=== PATIENT | female | born 1985 | race Caucasian/White ===

== ENCOUNTER 2022-10-29 20:34 | Inpatient (IN) | payer OTHER ==
[2022-10-29 21:06] VITALS: BMI 36.3
[2022-10-29] MEDS ORDERED: hydrALAZINE 20 MG/ML VIAL SLOW IVP PRN (21:13)
[2022-10-29] MEDS ORDERED: hydrALAZINE 20 MG/ML VIAL ONE (21:58)
[2022-10-29] MEDS ORDERED: hydrALAZINE 20 MG/ML VIAL SLOW IVP SCH (22:00)
[2022-10-29] MEDS ORDERED: Labetalol HCl 100 MG/20 ML VIAL ONE (22:20)
[2022-10-29] MEDS ORDERED: Labetalol HCl 100 MG/20 ML VIAL SLOW IVP SCH (22:30)
[2022-10-29] MEDS ORDERED: Lorazepam 2 MG/ML VIAL SLOW IVP PRN (22:37)
[2022-10-29] MEDS ORDERED: Calcium Gluc 4.6 MEQ/10 ML (100 MG/ML) SLOW IVP PRN (22:37)
[2022-10-29] MEDS ORDERED: Ondansetron PF 4 MG/2 ML Vial IVP PRN (22:37)
[2022-10-29] MEDS ORDERED: Promethazine HCl 25 MG/ML VIAL IM PRN (22:37)
[2022-10-29] MEDS ORDERED: NS w/ Oxytocin 30 units 500 ML IV SCH (22:45)
[2022-10-29] MEDS ORDERED: Magnesium Sulfate 20 gm/500 ml 20 GM/500 ML BAG IVPB SCH (22:45)
[2022-10-29] MEDS ORDERED: Betamet Acet/Betamet Na Ph 30 MG/5 ML VIAL ONE (22:58)
[2022-10-30] MEDS ORDERED: Calcium Carbonate 500 MG ChewTAB PO PRN (07:57)
[2022-10-30] MEDS ORDERED: Docusate 100 MG CAP PO PRN (07:57)
[2022-10-30] MEDS ORDERED: hydrOXYzine 25 MG TAB PO PRN (07:57)
[2022-10-30] MEDS ORDERED: Lorazepam 2 MG/ML VIAL SLOW IVP PRN (07:57)
[2022-10-30] MEDS ORDERED: Famotidine 20 MG TAB PO PRN (07:57)
[2022-10-30] MEDS: Acetaminophen 500 MG TAB PO PRN (08:00)
[2022-10-30] MEDS ORDERED: Acetaminophen 500 MG TAB PO SCH (08:00)
[2022-10-30 08:47] LABS: Hemoglobin 10.8 g/dL (12.0-15.5); Mean Corpuscular HGB CONC 33.5 g/dL (32.0-36.0); Mean Corpuscular Volume 89.4 fl (81.6-98.3); Mean Platelet Volume 10.9 fl (7.4-10.4); Platelet Count 239 10x3/uL (150-450); RBC Distribution Width 13.3 % (11.5-14.5); White Blood Cell (WBC) Count 12.9 10x3/uL (3.5-10.5)
[2022-10-30 08:59] LABS: ALT (SGPT) 10 U/L (8-55); AST (SGOT) 13 U/L (5-34); Albumin 3.5 g/dL (3.5-5.0); Alkaline Phosphatase 74 U/L (40-110); Anion Gap 15 mmol/L (10-20); BUN (Urea Nitrogen) 5 mg/dL (7.0-18.7); Bilirubin, Total 0.3 mg/dL (0.2-1.2); Calc. Creatinine Clearance 196 mL/min (70-130); Calcium 8.1 mg/dL (7.8-10.44); Carbon Dioxide 18 mmol/L (22-29); Chloride 105 mmol/L (98-107); Estimated GFR 119; Globulin 3.1 g/dL (2.4-3.5); Glucose 123 mg/dL (70-105); Potassium 4.2 mmol/L (3.5-5.1); Protein, Total 6.6 g/dL (6.0-8.3); Sodium 134 mmol/L (136-145)
[2022-10-30] MEDS ORDERED: Sertraline 100 MG TAB PO SCH (09:00)
[2022-10-30] MEDS: Labetalol HCl 200 MG TAB PO SCH ×2 (09:57→21:39)
[2022-10-30] MEDS: metroNIDAZOLE 500 MG TAB PO SCH ×2 (09:59→21:39)
[2022-10-30] MEDS: Prenatal Vitamin 1 TAB PO SCH (09:59)
[2022-10-30] MEDS: Aspirin 81 mg Enteric Coated Tablet PO SCH (09:59)
[2022-10-30] MEDS: Sertraline 100 MG TAB PO SCH (10:00)
[2022-10-30] MEDS: Betamet Acet/Betamet Na Ph 30 MG/5 ML VIAL IM SCH ×2 (12:10→23:27)
[2022-10-30] MEDS ORDERED: diphenhydrAMINE 50 MG/ML VIAL IVP SCH (16:30)
[2022-10-30] MEDS ORDERED: Metoclopramide HCl 10 MG/2 ML VIAL IVP SCH (16:30)
[2022-10-31] MEDS: HYDROcodone/Acetaminophen 5/325 mg Tablet PO PRN ×4 (01:51→18:30)
[2022-10-31] MEDS ORDERED: diphenhydrAMINE 50 MG/ML VIAL IVP PRN (02:08)
[2022-10-31] MEDS ORDERED: Metoclopramide HCl 10 MG/2 ML VIAL IVP PRN (02:09)
[2022-10-31] MEDS: Acetaminophen 500 MG TAB PO PRN ×2 (05:08→14:53)
[2022-10-31] MEDS: Labetalol HCl 200 MG TAB PO SCH ×2 (07:59→20:46)
[2022-10-31] MEDS: Sertraline 100 MG TAB PO SCH (07:59)
[2022-10-31] MEDS: metroNIDAZOLE 500 MG TAB PO SCH ×2 (08:10→20:46)
[2022-10-31] MEDS: Aspirin 81 mg Enteric Coated Tablet PO SCH (08:10)
[2022-10-31] MEDS: Prenatal Vitamin 1 TAB PO SCH (08:11)
[2022-10-31 11:03] LABS: Urine Total Volume 1800 mL (600-1600)
[2022-10-31 11:25] LABS: Protein - 24 Hr 198 mg/24 hr (Less than 300); Protein, Urine 11 mg/dL (1-14)
[2022-10-31] MEDS ORDERED: Lidocaine 4% Patch TD SCH (14:00)
[2022-10-31 20:47] VITALS: BP 126/60
[2022-10-31 20:57] VITALS: TEMP 98.4
[2022-11-01] MEDS ORDERED: Transdermal Patch Removal TOP SCH (02:00)
== END 2022-10-31 21:15 | disposition home or self-care (01) | DRG 832 ==
LOC: CSHLD 20:34 → CSHANTE 10-30 13:04
PROVIDERS: ADMIT Student in an Organized Health Care Education/Training Program; ATTEND Student in an Organized Health Care Education/Training Program
DX: O36.8130 Decreased fetal movements, third trimester, not applicable or unspecified (principal); O10.913 Unspecified pre-existing hypertension complicating pregnancy, third trimester; O23.593 Infection of other part of genital tract in pregnancy, third trimester; Z3A.28 28 weeks gestation of pregnancy; O99.343 Other mental disorders complicating pregnancy, third trimester; O99.213 Obesity complicating pregnancy, third trimester; F41.0 Panic disorder [episodic paroxysmal anxiety]; F32.9 Major depressive disorder, single episode, unspecified; E66.9 Obesity, unspecified; O34.211 Maternal care for low transverse scar from previous cesarean delivery; Z79.899 Other long term (current) drug therapy; Z79.82 Long term (current) use of aspirin
CPT/HCPCS: 36415; 51702; 76642; 76819; 80053; 82570; 83880; 84156; 85027; 93005; 93010; 99285; J0360; J0702; J1200; J2765; J3475

== ENCOUNTER 2022-12-19 21:12 | Day surgery (SDC) | payer OTHER ==
[2022-12-19 22:21] VITALS: BMI 37.2
[2022-12-19 22:33] LABS: Fetal Membranes Rupture No Membranes Rupture (No Rupture)
[2022-12-19] MEDS ORDERED: hydrALAZINE 20 MG/ML VIAL SLOW IVP PRN (22:38)
[2022-12-19 23:46] LABS: #Basophils 0.1 10x3/uL (0.0-0.2); #Eosinphils 0.3 10x3/uL (0.0-0.5); #Neutrophils 6.8 10x3/uL (1.5-8.4); %Basophils 0.8 % (0.0-2.0); %Eosinophils 3.2 % (0.0-6.0); %Lymphocytes 14.7 % (18.0-47.0); %Neutrophils 67.4 % (40.0-75.0); Hematocrit 30.7 % (34.9-44.5); Hemoglobin 10.3 g/dL (12.0-15.5); Mean Corpuscular HGB CONC 33.6 g/dL (32.0-36.0); Mean Corpuscular Hemoglobin 28.9 pg (27.0-33.0); Mean Platelet Volume 10.7 fl (7.4-10.4); Platelet Count 216 10x3/uL (150-450); RBC Distribution Width 13.9 % (11.5-14.5); Red Blood Cell (RBC) Count 3.57 10x6/uL (3.90-5.03); White Blood Cell (WBC) Count 10.1 10x3/uL (3.5-10.5)
[2022-12-19 23:56] LABS: ALT (SGPT) 11 U/L (8-55); AST (SGOT) 11 U/L (5-34); Albumin 3.4 g/dL (3.5-5.0); Alkaline Phosphatase 97 U/L (40-110); Anion Gap 16 mmol/L (10-20); BUN (Urea Nitrogen) 7 mg/dL (7.0-18.7); Bilirubin, Total 0.3 mg/dL (0.2-1.2); Calc. Creatinine Clearance 201 mL/min (70-130); Calcium 8.9 mg/dL (7.8-10.44); Carbon Dioxide 19 mmol/L (22-29); Chloride 107 mmol/L (98-107); Estimated GFR 119; Globulin 2.7 g/dL (2.4-3.5); Glucose 102 mg/dL (70-105); Potassium 3.8 mmol/L (3.5-5.1); Protein, Total 6.1 g/dL (6.0-8.3); Sodium 138 mmol/L (136-145)
[2022-12-19] MEDS ORDERED: Labetalol HCl 100 MG TAB PO SCH (23:59)
[2022-12-20] LABS: Creatinine, Urine 202.67 mg/dL (47-110)
[2022-12-20] MEDS ORDERED: Labetalol HCl 100 MG TAB PO SCH (02:15)
[2022-12-20] MEDS ORDERED: ALPRAZolam 0.25 MG TAB PO PRN (02:18)
[2022-12-20 02:29] VITALS: BP 162/79
== END 2022-12-20 04:12 | disposition home or self-care (01) ==
LOC: CSHLD/OP 21:12
PROVIDERS: ATTEND Emergency Medicine
DX: Z03.71 Encounter for suspected problem with amniotic cavity and membrane ruled out (principal); O09.523 Supervision of elderly multigravida, third trimester; O99.891 Other specified diseases and conditions complicating pregnancy; R10.9 Unspecified abdominal pain; O10.913 Unspecified pre-existing hypertension complicating pregnancy, third trimester; O99.343 Other mental disorders complicating pregnancy, third trimester; F41.0 Panic disorder [episodic paroxysmal anxiety]; F32.9 Major depressive disorder, single episode, unspecified; O99.213 Obesity complicating pregnancy, third trimester; E66.9 Obesity, unspecified; Z87.59 Personal history of other complications of pregnancy, childbirth and the puerperium; Z79.82 Long term (current) use of aspirin; Z79.899 Other long term (current) drug therapy; Z3A.35 35 weeks gestation of pregnancy
CPT/HCPCS: 36415; 76819; 80053; 82570; 84112; 84156; 85025; 99284

== ENCOUNTER 2022-12-30 15:39 | Inpatient (IN) | payer OTHER ==
[2022-12-30 16:05] VITALS: BMI 38.7
[2022-12-30 16:41] LABS: Hematocrit 31.4 % (34.9-44.5); Hemoglobin 10.5 g/dL (12.0-15.5); Mean Corpuscular HGB CONC 33.4 g/dL (32.0-36.0); Mean Corpuscular Hemoglobin 28.7 pg (27.0-33.0); Mean Corpuscular Volume 85.8 fl (81.6-98.3); Mean Platelet Volume 10.7 fl (7.4-10.4); Platelet Count 258 10x3/uL (150-450); RBC Distribution Width 14.2 % (11.5-14.5); Red Blood Cell (RBC) Count 3.66 10x6/uL (3.90-5.03); White Blood Cell (WBC) Count 10.5 10x3/uL (3.5-10.5)
[2022-12-30 16:50] LABS: ALT (SGPT) 10 U/L (8-55); AST (SGOT) 13 U/L (5-34); Albumin 3.4 g/dL (3.5-5.0); Alkaline Phosphatase 109 U/L (40-110); Anion Gap 16 mmol/L (10-20); BUN (Urea Nitrogen) 9 mg/dL (7.0-18.7); Bilirubin, Total 0.3 mg/dL (0.2-1.2); Calc. Creatinine Clearance 203 mL/min (70-130); Calcium 9.4 mg/dL (7.8-10.44); Carbon Dioxide 18 mmol/L (22-29); Chloride 106 mmol/L (98-107); Estimated GFR 118; Globulin 3.3 g/dL (2.4-3.5); Glucose 133 mg/dL (70-105); Potassium 3.7 mmol/L (3.5-5.1); Protein, Total 6.7 g/dL (6.0-8.3); Sodium 136 mmol/L (136-145)
[2022-12-30] MEDS ORDERED: Labetalol HCl 100 MG/20 ML VIAL SLOW IVP PRN (17:10)
[2022-12-30] MEDS ORDERED: hydrALAZINE 20 MG/ML VIAL ONE (17:46)
[2022-12-30] MEDS ORDERED: CEFAZOLIN 1 GM VIAL ONE (17:47)
[2022-12-30] MEDS ORDERED: Magnesium Sulfate 20 gm/500 ml 20 GM/500 ML BAG ONE (17:48)
[2022-12-30] MEDS ORDERED: Calcium Gluc 4.6 MEQ/10 ML (100 MG/ML) SLOW IVP PRN ×2 (18:03→23:32)
[2022-12-30] MEDS ORDERED: hydrALAZINE 20 MG/ML VIAL SLOW IVP PRN ×2 (18:03→23:32)
[2022-12-30] MEDS ORDERED: Lorazepam 2 MG/ML VIAL SLOW IVP PRN (18:03)
[2022-12-30] MEDS ORDERED: Promethazine HCl 25 MG/ML VIAL IM PRN ×3 (18:12→23:32)
[2022-12-30] MEDS ORDERED: Ondansetron PF 4 MG/2 ML Vial IVP PRN ×3 (18:12→23:32)
[2022-12-30] MEDS ORDERED: Misoprostol 200 MCG TAB PR PRN ×2 (18:12→23:32)
[2022-12-30] MEDS ORDERED: Methylergonovine 0.2 MG/ML VIAL IM PRN (18:12)
[2022-12-30] MEDS ORDERED: Magnesium Sulfate 20 gm/500 ml 20 GM/500 ML BAG IVPB SCH ×2 (18:15→23:32)
[2022-12-30] MEDS ORDERED: NS w/ Oxytocin 30 units 500 ML IV SCH ×2 (18:15→23:32)
[2022-12-30] MEDS ORDERED: ePHEDrine Sulfate 50 MG/10 ML VIAL ONE (18:41)
[2022-12-30] MEDS ORDERED: Morphine PF 10 MG/10 ML VIAL ONE (18:41)
[2022-12-30] MEDS ORDERED: fentaNYL 50 mcg/mL 1 mL Vial ONE (18:41)
[2022-12-30] MEDS ORDERED: Midazolam HCl 2 mg/2 ml Vial ONE (18:41)
[2022-12-30] MEDS ORDERED: Ketorolac Tromethamine 30 MG/ML VIAL ONE (18:42)
[2022-12-30] MEDS ORDERED: Ondansetron PF 4 MG/2 ML Vial ONE (18:42)
[2022-12-30] MEDS ORDERED: PHENYLEPHRINE-NS 100 MCG/ML 10 ML SYRINGE ONE (18:42)
[2022-12-30] MEDS ORDERED: Phenylephrine 40 MG/NS 250 ML 250 ML ONE (18:42)
[2022-12-30 19:00] LABS: HBSAg Index 0.29 S/CO (0-0.99); HIV (1/2) Antibody/Antigen Non-Reactive (NonReactive); HIV 1/2 INDEX 0.06 S/CO (<1.00); Hep B Surf Ag - L&D Non-Reactive S/CO (NonReactive)
[2022-12-30 19:01] LABS: Syphilis Antibody Nonreactive (Nonreactive); Syphilis Antibody Index 0.03 S/CO (<1.00 Non-Reactive)
[2022-12-30] MEDS ORDERED: Acetaminophen 500 MG TAB PO PRN (19:23)
[2022-12-30] MEDS ORDERED: ALPRAZolam 0.5 MG TAB PO PRN (19:23)
[2022-12-30] MEDS ORDERED: Doxylamine 25 MG TAB PO PRN (19:23)
[2022-12-30 19:27] LABS: Bilirubin Neg (Negative); Blood, Urine Negative (Negative); Glucose, Urine (Dipstick) 250 mg/dL (Negative); Ketone, Urine 5 mg/dL (Negative); Leukocyte Negative (Negative); Nitrite Negative (Negative); Protein, Urine (Dipstick) 15 mg/dl (Neg-Trace); Urobilinogen Normal mg/dL (Less than 2)
[2022-12-30 19:28] LABS: Clarity Hazy (Clear)
[2022-12-30 19:44] LABS: Creatinine, Urine 97.62 mg/dL (47-110)
[2022-12-30 20:14] LABS: Bacteria/HPF 2+ HPF (None Seen); CAUTI Indications for Culture Pregnancy; Mucous/LPF 2+ LPF (<2+); RBC/HPF 0-3 HPF (0-3); Squamous Epithelial 0-3 HPF (0-3); WBC/HPF 0-3 HPF (0-3)
[2022-12-30 20:16] LABS: Urine Culture Reflex Yes Yes
[2022-12-30 20:41] LABS: SARS-CoV-2 NAA Rapid Test Not Detected (NotDetected)
[2022-12-30] MEDS ORDERED: Promethazine HCl 25 MG SUPP PR PRN (20:48)
[2022-12-30] MEDS ORDERED: Moisturizing Cream (Eucerin) 113 GM JAR TOP PRN (20:48)
[2022-12-30] MEDS ORDERED: diphenhydrAMINE 50 MG/ML VIAL IVP PRN (20:48)
[2022-12-30] MEDS ORDERED: Naloxone HCl 0.4 mg/ml Vial IVP PRN ×2 (20:48)
[2022-12-30] MEDS ORDERED: Naloxone HCl 0.4 mg/ml Vial IV PRN (20:48)
[2022-12-30] MEDS ORDERED: Communication Order-Pharmacy FS SCH (21:00)
[2022-12-30] MEDS ORDERED: Morphine 4 MG/ML VIAL ONE (22:26)
[2022-12-30] MEDS ORDERED: Morphine 4 MG/ML VIAL SLOW IVP SCH (22:30)
[2022-12-30] MEDS ORDERED: Acetaminophen 325 MG TAB PO PRN (23:32)
[2022-12-30] MEDS ORDERED: Bisacodyl 10 MG SUPP PR PRN (23:32)
[2022-12-30] MEDS ORDERED: diphenhydrAMINE 25 MG CAP PO PRN (23:32)
[2022-12-30] MEDS ORDERED: Lanolin Ointment 7 GM TUBE TOP PRN (23:32)
[2022-12-30] MEDS ORDERED: Docusate 100 MG CAP PO SCH (23:45)
[2022-12-30] MEDS ORDERED: Ferrous Sulfate 325 MG TAB PO SCH (23:45)
[2022-12-30] MEDS ORDERED: Labetalol HCl 100 MG TAB PO SCH (23:45)
[2022-12-31] MEDS: Ketorolac Tromethamine 30 MG/ML VIAL IVP PRN ×3 (02:35→14:18)
[2022-12-31 04:25] LABS: Hematocrit 28.8 % (34.9-44.5); Hemoglobin 9.6 g/dL (12.0-15.5); Mean Corpuscular HGB CONC 33.3 g/dL (32.0-36.0); Mean Corpuscular Hemoglobin 28.7 pg (27.0-33.0); Mean Platelet Volume 10.7 fl (7.4-10.4); Platelet Count 233 10x3/uL (150-450); RBC Distribution Width 14.1 % (11.5-14.5); Red Blood Cell (RBC) Count 3.35 10x6/uL (3.90-5.03)
[2022-12-31] MEDS: Sertraline 100 MG TAB PO SCH (08:32)
[2022-12-31] MEDS ORDERED: Lorazepam 2 MG/ML VIAL SLOW IVP PRN (09:00)
[2022-12-31] MEDS ORDERED: hydrOXYzine 25 MG TAB PO SCH (09:00)
[2022-12-31] MEDS ORDERED: ALPRAZolam 0.5 MG TAB PO PRN (09:00)
[2022-12-31] MEDS ORDERED: Labetalol HCl 100 MG TAB PO SCH (09:00)
[2022-12-31] MEDS ORDERED: Aspirin 81 mg Enteric Coated Tablet PO SCH (09:00)
[2022-12-31] MEDS: Docusate 100 MG CAP PO SCH ×2 (10:15→20:56)
[2022-12-31] MEDS: Prenatal Vitamin 1 TAB PO SCH (10:15)
[2022-12-31] MEDS: Ferrous Sulfate 325 MG TAB PO SCH ×2 (10:15→20:56)
[2022-12-31] MEDS: Simethicone Chewable 80 MG TAB PO PRN (20:56)
[2022-12-31] MEDS: Ibuprofen 800 MG TAB PO SCH (20:56)
[2022-12-31] MEDS: HYDROcodone/Acetaminophen 5/325 mg Tablet PO PRN (20:57)
[2022-12-31] MEDS: Labetalol HCl 100 MG TAB PO SCH (20:57)
[2023-01-01] MEDS: HYDROcodone/Acetaminophen 5/325 mg Tablet PO PRN ×5 (01:04→21:47)
[2023-01-01] MEDS: Ibuprofen 800 MG TAB PO SCH ×3 (05:29→21:46)
[2023-01-01] MEDS: Ferrous Sulfate 325 MG TAB PO SCH ×2 (07:49→21:46)
[2023-01-01] MEDS: Docusate 100 MG CAP PO SCH ×2 (07:49→21:46)
[2023-01-01] MEDS: Sertraline 100 MG TAB PO SCH (07:49)
[2023-01-01] MEDS: Prenatal Vitamin 1 TAB PO SCH (07:49)
[2023-01-01] MEDS: Labetalol HCl 100 MG TAB PO SCH ×2 (07:50→21:46)
[2023-01-01] MEDS: Simethicone Chewable 80 MG TAB PO PRN ×2 (14:08→17:56)
[2023-01-02] MEDS: HYDROcodone/Acetaminophen 5/325 mg Tablet PO PRN ×2 (03:44→15:55)
[2023-01-02] MEDS ORDERED: Labetalol HCl 100 MG TAB PO SCH ×2 (04:30→06:45)
[2023-01-02] MEDS: Ibuprofen 800 MG TAB PO SCH ×3 (05:36→21:48)
[2023-01-02] MEDS ORDERED: Famotidine 20 MG TAB PO SCH (06:45)
[2023-01-02] MEDS: Labetalol HCl 100 MG TAB PO SCH ×2 (07:18→21:49)
[2023-01-02] MEDS: Ferrous Sulfate 325 MG TAB PO SCH ×2 (07:19→21:49)
[2023-01-02] MEDS: Docusate 100 MG CAP PO SCH ×2 (07:19→21:49)
[2023-01-02] MEDS: Sertraline 100 MG TAB PO SCH (07:20)
[2023-01-02] MEDS: Prenatal Vitamin 1 TAB PO SCH (07:20)
[2023-01-02] MEDS: Acetaminophen 325 MG TAB PO SCH ×4 (15:56→21:48)
[2023-01-03] MEDS: Acetaminophen 325 MG TAB PO SCH ×3 (04:52→20:26)
[2023-01-03] MEDS: Ibuprofen 800 MG TAB PO SCH ×3 (04:52→20:26)
[2023-01-03] MEDS ORDERED: Labetalol HCl 100 MG TAB PO SCH ×2 (05:15→12:00)
[2023-01-03] MEDS: Sertraline 100 MG TAB PO SCH (08:00)
[2023-01-03] MEDS: Prenatal Vitamin 1 TAB PO SCH (08:00)
[2023-01-03] MEDS: Ferrous Sulfate 325 MG TAB PO SCH ×2 (08:00→20:26)
[2023-01-03] MEDS: HYDROcodone/Acetaminophen 5/325 mg Tablet PO PRN ×2 (08:07→17:01)
[2023-01-03] MEDS: Docusate 100 MG CAP PO SCH ×2 (08:07→20:26)
[2023-01-03] MEDS ORDERED: NIFEdipine XL 30 MG TAB PO SCH (15:00)
[2023-01-03] MEDS ORDERED: Labetalol HCl 100 MG/20 ML VIAL SLOW IVP SCH ×2 (20:00→20:15)
[2023-01-03] MEDS: Labetalol HCl 200 MG TAB PO SCH (21:43)
[2023-01-04] MEDS: Acetaminophen 325 MG TAB PO SCH ×2 (01:10→12:41)
[2023-01-04] MEDS ORDERED: ALPRAZolam 0.25 MG TAB PO PRN (02:34)
[2023-01-04] MEDS: Ibuprofen 800 MG TAB PO SCH (05:01)
[2023-01-04] MEDS: Sertraline 100 MG TAB PO SCH (08:01)
[2023-01-04] MEDS: Labetalol HCl 200 MG TAB PO SCH (08:01)
[2023-01-04] MEDS: Prenatal Vitamin 1 TAB PO SCH (08:02)
[2023-01-04] MEDS ORDERED: NIFEdipine XL 30 MG TAB PO SCH ×2 (09:00)
[2023-01-04] MEDS: Docusate 100 MG CAP PO SCH (12:40)
[2023-01-04 16:05] VITALS: BP 125/60; TEMP 98
== END 2023-01-04 14:00 | disposition home or self-care (01) | DRG 787 ==
LOC: CSHLD/OP 15:39 → CSHLD 17:35 → CSHPP 12-31 21:40
PROVIDERS: ADMIT Student in an Organized Health Care Education/Training Program; ATTEND Student in an Organized Health Care Education/Training Program
PROC: 10D00Z1 Extraction of Products of Conception, Low, Open Approach (ICD-10-PCS; principal; 2022-12-30)
DX: O11.4 Pre-existing hypertension with pre-eclampsia, complicating childbirth (principal); O99.354 Diseases of the nervous system complicating childbirth; O10.92 Unspecified pre-existing hypertension complicating childbirth; Z3A.37 37 weeks gestation of pregnancy; Z37.0 Single live birth; E66.9 Obesity, unspecified; O99.214 Obesity complicating childbirth; F32.9 Major depressive disorder, single episode, unspecified; F41.0 Panic disorder [episodic paroxysmal anxiety]; O99.344 Other mental disorders complicating childbirth; Z79.899 Other long term (current) drug therapy; Z79.82 Long term (current) use of aspirin; F41.1 Generalized anxiety disorder; O72.2 Delayed and secondary postpartum hemorrhage; O34.211 Maternal care for low transverse scar from previous cesarean delivery; Z20.822 Contact with and (suspected) exposure to COVID-19; G47.00 Insomnia, unspecified; O99.62 Diseases of the digestive system complicating childbirth; K66.0 Peritoneal adhesions (postprocedural) (postinfection); O67.8 Other intrapartum hemorrhage
CPT/HCPCS: 36415; 51702; 80053; 81001; 82570; 83880; 84156; 85027; 86780; 86850; 86900; 86901; 87086; 87340; 87389; 93005; 93010; 99285; J0360; J0690; J1885; J2250; J2270; J2274; J2405; J3010; J3475; U0002